=== PATIENT | male | born 1985 | race Caucasian/White ===

== ENCOUNTER 2020-01-05 06:18 | Emergency (ER) | payer BC, OTHER ==
[~2020-01-05] VITALS: Ht 185 cm; Wt 99.0 kg
[2020-01-05 06:48] LABS: BASOPHILS # (AUTO) 0.1 10^3/uL (0.0-0.1); BASOPHILS % (AUTO) 1 % (0-10); EOSINOPHILS # (AUTO) 0.1 10^3/uL (0.0-0.3); EOSINOPHILS % (AUTO) 1 % (0-10); HEMATOCRIT 43 % (40-54); LYMPHOCYTES # (AUTO) 1.4 10^3/uL (1.0-4.0); LYMPHOCYTES % (AUTO) 16 % (12-44); MEAN CORPUSCULAR HEMOGLOBIN 27 pg (25-34); MEAN CORPUSCULAR HGB CONC 33 g/dL (32-36); MEAN CORPUSCULAR VOLUME 84 fL (80-99); MEAN PLATELET VOLUME 9.8 fL (9.0-12.2); MONOCYTES # (AUTO) 0.4 10^3/uL (0.0-1.0); MONOCYTES % (AUTO) 5 % (0-12); NEUTROPHILS # (AUTO) 6.5 10^3/uL (1.8-7.8); NEUTROPHILS % (AUTO) 77 % (42-75); PLATELET COUNT 257 10^3/uL (130-400); WHITE BLOOD COUNT 8.4 10^3/uL (4.3-11.0)
[2020-01-05 06:49] LABS: BILIRUBIN,URINE NEGATIVE (NEGATIVE); CLARITY,URINE CLEAR; COLOR,URINE YELLOW; GLUCOSE, URINE (UA) NEGATIVE (NEGATIVE); KETONES,URINE NEGATIVE (NEGATIVE); LEUKOCYTE ESTERASE ,URINE NEGATIVE (NEGATIVE); NITRITE,URINE NEGATIVE (NEGATIVE); PH,URINE 6.5 (5-9); PROTEIN,URINE NEGATIVE (NEGATIVE)
[2020-01-05] MEDS ORDERED: morphine INJ 10 MG/ML 1ML (SYR OR VIAL) IVP STA (06:49)
--- NOTE | 2020-01-05 06:49 | ED Abdominal Pain ---
General Stated Complaint: ABD PAIN/ N/V/D Source of Information: Patient Exam Limitations: No Limitations History of Present Illness Date Seen by Provider: Jan 05, 2020 Time Seen by Provider: 06:35 Initial Comments Patient presents ER by private conveyance with chief complaint of left lower quadrant abdominal pain radiating down towards his left groin. It started about midnight tonight and woke him from sleep. He rates it anywhere from a 7-10, intermittent waxing and waning. He had one episode of emesis at 1:00 which she described as dark black and one episode of diarrhea and loose stool. He had a history of diverticulitis. He also has a history of gastritis with mucosal erosions diagnosed on EGD [address] Varela in [place]. He is on Protonix. He has not taken anything for this morning. He is not having any fevers chills or nausea presently. Allergies and Home Medications Allergies Coded Allergies: No Known Drug Allergies (Unverified , 01/05/20) Home Medications Ciprofloxacin HCl 500 Mg Tablet, 500 MG PO BID Prescribed by: ANKIT WORKMAN on 01/05/20 0743 L.acidoph & Paracasei,B.lactis 1 Each Capsule, 1 EACH PO BID Prescribed by: ANKIT WORKMAN on 01/05/20 0743 Metronidazole 500 Mg Tablet, 500 MG PO TID Prescribed by: ANKIT WORKMAN on 01/05/20 0743 Ondansetron 4 Mg Tab.rapdis, 4 MG PO Q6H PRN for NAUSEA/VOMITING Prescribed by: ANKIT WORKMAN on 01/05/20 0744 Sucralfate 1 Gm Tablet, 1 GM PO QIDACHS Prescribed by: ANKIT WORKMAN on 01/05/20 0743 Patient Home Medication List Home Medication List Reviewed: Yes Review of Systems Review of Systems Constitutional: No chills, No diaphoresis EENTM: No Blurred Vision, No Double Vision Respiratory: Denies Cough, Denies Shortness of Air Cardiovascular: Denies Chest Pain, Denies Lightheadedness Gastrointestinal: Abdominal Pain; Denies Constipated; Diarrhea; Denies Poor Fluid Intake; Vomiting Genitourinary: Denies Burning, Denies Discharge Musculoskeletal: No back pain, No joint pain Psychiatric/Neurological: Denies Anxiety, Denies Depressed All Other Systems Reviewed Negative Unless Noted: Yes Past [id number] Hx Patient Social History Alcohol Use: Denies Use Recreational Drug Use: No Smoking Status: Never a Smoker Physical Exam Vital Signs Vital Signs - First Documented 01/05/20 07:00 Temp 37.2 Pulse 90 Resp 16 B/P (MAP) 145/99 (114) Pulse Ox 96 O2 Delivery Room Air Capillary Refill : Height/Weight/BMI Height: '" Weight: lbs. oz. kg; BMI Method: General Appearance: WD/WN, mild distress HEENT: PERRL/EOMI, normal ENT inspection, TMs normal, pharynx normal Neck: full range of motion, supple, normal inspection Respiratory: lungs clear, normal breath sounds, no respiratory distress, no accessory muscle use Cardiovascular: normal peripheral pulses, regular rate, rhythm Peripheral Pulses: 2+ Radial Pulses (R), 2+ Radial Pulses (L) Gastrointestinal: normal bowel sounds, non tender, soft Extremities: normal inspection, no pedal edema, normal capillary refill Neurologic/Psychiatric: alert, normal mood/affect, oriented x 3 Skin: normal color, warm/dry Progress/Results/Core Measures Results/Orders Lab Results Laboratory Tests Test 01/05/20 06:35 01/05/20 06:41 Range/Units White Blood Count 8.4 4.3-11.0 10^3/uL Red Blood Count 5.15 4.30-5.52 10^6/uL Hemoglobin 14.0 13.3-17.7 g/dL Hematocrit 43 40-54 % Mean Corpuscular Volume 84 80-99 fL Mean Corpuscular Hemoglobin 27 25-34 pg Mean Corpuscular Hemoglobin Concent 33 32-36 g/dL Red Cell Distribution Width 12.7 10.0-14.5 % Platelet Count 257 130-400 10^3/uL Mean Platelet Volume 9.8 9.0-12.2 fL Immature Granulocyte % (Auto) 1 % Neutrophils (%) (Auto) 77 H 42-75 % Lymphocytes (%) (Auto) 16 12-44 % Monocytes (%) (Auto) 5 0-12 % Eosinophils (%) (Auto) 1 0-10 % Basophils (%) (Auto) 1 0-10 % Neutrophils # (Auto) 6.5 1.8-7.8 10^3/uL Lymphocytes # (Auto) 1.4 1.0-4.0 10^3/uL Monocytes # (Auto) 0.4 0.0-1.0 10^3/uL Eosinophils # (Auto) 0.1 0.0-0.3 10^3/uL Basophils # (Auto) 0.1 0.0-0.1 10^3/uL Immature Granulocyte # (Auto) 0.1 0.0-0.1 10^3/uL Sodium Level 139 135-145 MMOL/L Potassium Level 4.1 3.6-5.0 MMOL/L Chloride Level 103 98-107 MMOL/L Carbon Dioxide Level 24 21-32 MMOL/L Anion Gap 12 5-14 MMOL/L Blood Urea Nitrogen 15 7-18 MG/DL Creatinine 1.11 0.60-1.30 MG/DL Estimat Glomerular Filtration Rate > 60 BUN/Creatinine Ratio 14 Glucose Level 121 H 70-105 MG/DL Calcium Level 9.2 8.5-10.1 MG/DL Corrected Calcium 8.5-10.1 MG/DL Total Bilirubin 0.4 0.1-1.0 MG/DL Aspartate Amino Transf (AST/SGOT) 25 5-34 U/L Alanine Aminotransferase (ALT/SGPT) 56 H 0-55 U/L Alkaline Phosphatase 63 40-136 U/L C-Reactive Protein High Sensitivity 0.14 0.00-0.50 MG/DL Total Protein 7.5 6.4-8.2 GM/DL Albumin 4.7 H 3.2-4.5 GM/DL Lipase 14 8-78 U/L Urine Color YELLOW Urine Clarity CLEAR Urine pH 6.5 5-9 Urine Specific [place] 1.025 H 1.016-1.022 Urine Protein NEGATIVE NEGATIVE Urine Glucose (UA) NEGATIVE NEGATIVE Urine Ketones NEGATIVE NEGATIVE Urine Nitrite NEGATIVE NEGATIVE Urine Bilirubin NEGATIVE NEGATIVE Urine Urobilinogen 0.2 < = 1.0 MG/DL Urine Leukocyte Esterase NEGATIVE NEGATIVE Urine RBC (Auto) NEGATIVE NEGATIVE Urine RBC NONE /HPF Urine WBC RARE /HPF Urine Squamous Epithelial Cells NONE /HPF Urine Crystals NONE /LPF Urine Bacteria NEGATIVE /HPF Urine Casts NONE /LPF Urine Mucus NEGATIVE /LPF Urine Culture Indicated NO My Orders Orders - ANKIT WORKMAN Cbc With Automated Diff (01/05/20 06:43) Comprehensive Metabolic Panel (01/05/20 06:43) Lipase (01/05/20 06:43) Ua Culture If Indicated (01/05/20 06:43) Hs C Reactive Protein (01/05/20 06:43) Pantoprazole Injection (Protonix Injecti (01/05/20 07:00) Morphine Injection (Morphine Injection (01/05/20 06:49) Hydrocodone/Apap 5/325 Tablet (Lortab 5 (01/05/20 07:45) Medications Given in ED Current Medications Medications Dose Ordered Sig/Fransisca Route Start Time Stop Time Status Last Admin Dose Admin Pantoprazole 40 mg ONCE ONCE IV 01/05/20 07:00 01/05/20 07:01 DC 01/05/20 07:03 40 MG Vital Signs/I&O 01/05/20 07:00 Temp 37.2 Pulse 90 Resp 16 B/P (MAP) 145/99 (114) Pulse Ox 96 O2 Delivery Room Air Progress Progress Note #1: Time: 06:52 Progress Note Differential includes diverticulitis less likely appendicitis, general colitis, upper GI bleed. He is not tender in his epigastric region. [place] can be ruled out with a lipase. We'll get a urinalysis since he has some pain radiating into his groin. He is not having testicular pain and the pain only int ermittently radiates into his groin so testicular torsion is therefore ruled out by history and clinical exam. 2 mg of morphine should adequately cover his pain but we will reassess. He does not have any nausea presently so no Zofran. We'll give him pantoprazole and check some basic labs. They're pointing to significant infection or inflammation then we can get a CT scan to rule out abscess formation otherwise we'll probably treat conservatively with antacids and antibiotics for diverticulitis. Progress Note #2: Time: 07:35 Progress Note Patient has had significant improvement in his pain. He is more comfortable however he is still in pains or any give him a dose of hydrocodone before he leaves. It is felt that he is having diverticulitis given his abdominal exam. It's possible he could be having some gastritis given his history so were going to encourage him to follow-up with his clinic maybe return to Dr. Varela's for a repeat endoscopy. We will put him on Carafate for couple weeks encourage him to continue pantoprazole. Return up with him on ciprofloxacin and Flagyl in addition to probiotics for a week. We have given good return precautions. He is to follow-up in one week with his primary care office. Departure Impression Primary Impression: Diverticulitis of intestine Qualified Codes: K57.32 - Diverticulitis of large intestine without perforation or abscess without bleeding Additional Impression: Gastritis Qualified Codes: K29.50 - Unspecified chronic gastritis without bleeding Disposition: HOME, SELF-CARE Condition: Stable Departure-Patient Inst. Decision time for Depature: 07:37 Patient Instructions: Diverticulosis (DC), Gastritis Add. Discharge Instructions: I suspect that you're having a bout of diverticulitis. You may also be having some irritated stomach lining known as gastritis. To protect your stomach and watch to continue taking the pantoprazole. I would start you on a two-week course of Carafate. 1 tablet 30 minutes before meals and at bedtime for a total 4 times a day. To treat diverticulitis we would put you on antibiotics and expect improvement over the next 3-4 days. Ciprofloxacin twice daily with food. 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 If you have nausea take ondansetron one tablet under the tongue every 6 hours as necessary. Hydrocodone one tablet every 6 hours as necessary for severe pain keeping you from being functional. Tylenol 1000 mg every 8 hours as necessary for pain. Heating pads may be helpful for discomfort across to your abdomen. If your symptoms are worsening please return to the ER nearest you. Plan follow-up in one to 2 weeks with your primary care provider for appropriate evaluation of your symptoms. You may need to follow-up with Dr. Varela for repeat EGD. Scripts Ondansetron (Ondansetron Odt) 4 Mg Tab.rapdis 4 MG PO Q6H PRN for NAUSEA/VOMITING, #8 TAB 0 Refills Prov: ANKIT WORKMAN 01/05/20 L.acidoph & Paracasei,B.lactis (Probiotic) 1 Each Capsule 1 EACH PO BID for 7 Days, #14 CAP 0 Refills Prov: ANKIT WORKMAN 01/05/20 Sucralfate (Carafate) 1 Gm Tablet 1 GM PO QIDACHS for 14 Days, #56 TAB 0 Refills Prov: ANKIT WORKMAN 01/05/20 Metronidazole (Metronidazole) 500 Mg Tablet 500 MG PO TID, #21 TAB 0 Refills Prov: ANKIT WORKMAN 01/05/20 Ciprofloxacin HCl (Ciprofloxacin HCl) 500 Mg Tablet 500 MG PO BID, #14 TAB 0 Refills Prov: ANKIT WORKMAN 01/05/20 Work/School Note: Family Work Note Patient Received Medical Care In the Emergency Department On: Jan 05, 2020 Patient Will Be Able to Return to Work/School On: Jan 05, 2020 Patient Restrictions: none ANKIT WORKMAN Jan 05, 2020 06:49
[2020-01-05 06:52] LABS: ALBUMIN 4.7 GM/DL (3.2-4.5)
[2020-01-05 06:53] LABS: CHLORIDE 103 MMOL/L (98-107); POTASSIUM 4.1 MMOL/L (3.6-5.0); SODIUM 139 MMOL/L (135-145)
[2020-01-05 06:54] LABS: CALCIUM 9.2 MG/DL (8.5-10.1)
[2020-01-05 06:55] LABS: GLUCOSE 121 MG/DL (70-105); TOTAL PROTEIN 7.5 GM/DL (6.4-8.2)
[2020-01-05 06:56] LABS: BACTERIA,URINE NEGATIVE /HPF; WBC,URINE RARE /HPF
[2020-01-05 06:56] LABS: CARBON DIOXIDE 24 MMOL/L (21-32)
[2020-01-05 06:57] LABS: BILIRUBIN,TOTAL 0.4 MG/DL (0.1-1.0)
[2020-01-05 06:59] LABS: ALKALINE PHOSPHATASE 63 U/L (40-136); CREATININE SERUM 1.11 MG/DL (0.60-1.30); GFR ESTIMATED > 60
[2020-01-05 07:00] LABS: BUN/CREATININE RATIO 14
[2020-01-05] MEDS ORDERED: PANTOPRAZOLE 40 MG (PROTONIX) VIAL IV ONE (07:00)
[2020-01-05 07:02] LABS: ALANINE AMINOTRANSFERASE 56 U/L (0-55); LIPASE 14 U/L (8-78)
[2020-01-05] MEDS ORDERED: L.AC1CAP6 PO (07:43)
[2020-01-05] MEDS ORDERED: METR-145 PO (07:43)
[2020-01-05] MEDS ORDERED: CIPR500T4 PO (07:43)
[2020-01-05] MEDS ORDERED: SUCR1TAB36 PO (07:43)
[2020-01-05] MEDS ORDERED: ONDA4TAB11 PO (07:44)
[2020-01-05] MEDS ORDERED: HYDROcodone/APAP 5 MG/325 MG (LORTAB) TAB PO ONE (07:45)
[2020-01-05] MEDS ORDERED: ACHD5005 PO (07:46)
[2020-01-05 07:55] VITALS: BP 111/75
== END 2020-01-05 07:55 | disposition home or self-care (01) ==
LOC: ER 06:21
DX: K57.32 Diverticulitis of large intestine without perforation or abscess without bleeding (principal); K29.50 Unspecified chronic gastritis without bleeding; Z79.899 Other long term (current) drug therapy
CPT/HCPCS: 36415; 80053; 81000; 83690; 85025; 86141